=== PATIENT | male | born 1975 | race African-American/Black ===

== ENCOUNTER 2024-06-26 22:46 | Emergency (ER) | payer BC ==
[~2024-06-26] VITALS: Ht 190.5 cm; Wt 103.0 kg
[2024-06-26 23:11] VITALS: O2SAT 98
[2024-06-27] MEDS: LIDOCAINE HCL/PF 1% 10 MG/ML 5ML VIAL INFIL ONE (02:47)
[2024-06-27] MEDS ORDERED: IBUP-2029 MT (03:16)
[2024-06-27] MEDS ORDERED: CEPH500C2 MT (03:16)
[2024-06-27] MEDS ORDERED: BO1 TP (03:16)
[2024-06-27] MEDS: IBUPROFEN 600MG TABLET PO ONE (03:19)
[2024-06-27] MEDS: BACITRACIN ZINC OINT UDPKT TOP ONE (03:20)
[2024-06-27 04:02] VITALS: BP 124/62; PULSE 72; RESP 20; TEMP 36.61404; O2SAT 100
== END 2024-06-27 04:07 | disposition home or self-care (01) ==
LOC: ER 22:46
DX: S91.111A Laceration without foreign body of right great toe without damage to nail, initial encounter (principal); J45.909 Unspecified asthma, uncomplicated; E11.9 Type 2 diabetes mellitus without complications; Z79.899 Other long term (current) drug therapy; W26.8XXA Contact with other sharp object(s), not elsewhere classified, initial encounter; Y93.89 Activity, other specified; Y92.89 Other specified places as the place of occurrence of the external cause; Y99.8 Other external cause status
CPT/HCPCS: 12002; 99283; 73630; J3490; Z7610